=== PATIENT | male | born 1960 | race American Indian/Alaskan Native ===

== ENCOUNTER 2019-01-11 06:11 | Day surgery (SDC) | payer MEDICARE ==
[~2019-01-11 06:11] MED LIST: LACTATED RINGERS 1,000 ML IV SCH; VERSED IV NR
[2019-01-11] MEDS ORDERED: MARCAINE-EPI 0.5%-1:200,000 INFILTRATI ONE ×3 (07:22→08:26)
[2019-01-11] MEDS ORDERED: ZEMURON IV ONE (07:25)
[2019-01-11] MEDS ORDERED: XYLOCAINE MPF 2% ONE (07:25)
[2019-01-11] MEDS ORDERED: SUBLIMAZE ONE (07:26)
[2019-01-11] MEDS ORDERED: VERSED ONE (07:26)
[2019-01-11] MEDS ORDERED: DIPRIVAN 10 MG/ML IV ONE (07:26)
[2019-01-11] MEDS ORDERED: DILAUDID IV PRN (07:28)
--- NOTE | 2019-01-11 07:28 | Anesthesia Consultation ---
Anesthesia Consult and Med Hx Date of service: 01/11/19 - Airway Anesthetic Teeth Evaluation: Edentulous ROM Head & Neck: Adequate Mental/Hyoid Distance: Adequate Mallampati Class: Class II Intubation Access Assessment: Probably Good - Pulmonary Exam CTA: Yes - Cardiac Exam Cardiac Exam: RRR - Pre-Operative Health Status ASA Pre-Surgery Classification: ASA2 Proposed Anesthetic Plan: General - Pulmonary Hx Smoking: Yes (1/2 PPD) Hx Respiratory Symptoms: No - Cardiovascular System Hx Hypertension: No Hx Heart Attack/AMI: No - Central Nervous System CVA: No Hx Psychiatric Problems: Yes (schizophrenia on haldol q2wks) - Gastrointestinal Hx Gastroesophageal Reflux Disease: No - Endocrine Hx Renal Disease: No Hx Liver Disease: No Hx Insulin Dependent Diabetes: No Hx Non-Insulin Dependent Diabetes: No Hx Thyroid Disease: No - Hematic Hx Anemia: No - Other Systems Hx Obesity: No
--- NOTE | 2019-01-11 07:29 | Anesthesia Day of Surgery ---
Anesthesia Day of Surgery - Day of Surgery Patient Examined: Yes Patient H&P Reviewed: Yes Patient is NPO: Yes
[2019-01-11] MEDS ORDERED: ceFAZolin 2 GM in NACL 0.9% 100 ML IV ONE (07:30)
[2019-01-11] MEDS ORDERED: TORADOL ONE (08:09)
[2019-01-11] MEDS ORDERED: ZOFRAN ONE (08:09)
[2019-01-11] MEDS ORDERED: ROBINUL ONE (08:29)
[2019-01-11] MEDS ORDERED: BLOXIVERZ ONE (08:29)
--- NOTE | 2019-01-11 08:35 | Discharge Summary ---
Short Stay Discharge Plan Activity: other (observe x 4 hrs then july d/c if stable and able to void. ice pack L groin x 6 hrs. scrotal support x 3 days. no lifting over 5 lbs x 3 wks) Diet: other (cl liq diet. advance to solid high fiber diet as prema) Wound: keep clean and dry (x 5 days) Additional Instructions: aleve I po q 6-8 hrs prn for breakthrough pain. surfak I po q am x 3 Follow up with: BRISSA JOVEL MD [Staff Physician] - 7 Days
[2019-01-11] MEDS ORDERED: ANCEF/STERILE WATER 2 GM/20 ML 2 GM/20 ML SYRINGE IV NR (09:00)
--- NOTE | 2019-01-11 09:28 | Operative Report ---
PREOPERATIVE DIAGNOSIS: Left inguinal hernia. POSTOPERATIVE DIAGNOSIS: Left inguinal hernia. PROCEDURE: Open left inguinal hernia repair with mesh. SURGEON: Lloyd Ellison MD ANESTHESIA: General. ESTIMATED BLOOD LOSS: Minimal. DRAINS: None. COMPLICATIONS: None. FINDINGS: Direct left inguinal hernia. PROCEDURE IN DETAIL: The patient was taken to the operating room, prepped and draped in the usual sterile fashion. An incision was made using his landmarks, the anterior superior iliac spine and the pubic tubercle. Incision was carried down to the external oblique fascia. External oblique fascia was transected down to the external inguinal ring. The cord was then isolated with a Castaner drain at the level of the pubic tubercle. The cord was inspected and no indirect sac noted. Palpation of the inguinal canal floor revealed a direct inguinal hernia. A preshaped keyhole Marlex mesh was then used to reinforce the inguinal canal floor. The mesh was tacked to the pubic tubercle with a tacker. Medially, the mesh was secured to the transversalis fascia with #1 Nurolon and laterally, secured to the iliopubic tract. Area was then irrigated copiously and dried. Checked for hemostasis and noted to be dry. All cord structures were then once again inspected and noted to be intact including the ilioinguinal nerve. The cord was onlaid over the mesh. External oblique fascia was closed over the cord with running 3-0 Vicryl suture. Subcutaneous tissues irrigated and skin closed with beverly. A 0.5% Marcaine was infiltrated over the fascia, subcutaneous, and skin for postoperative pain relief. Ilioinguinal nerve block was also performed. The patient tolerated the procedure well and left the OR in stable condition. JOB# [id number] FP/NTS
[2019-01-11] MEDS ORDERED: NORCO 5/325 PO PRN (10:00)
--- NOTE | 2019-01-11 10:09 | Post Anesthesia Evaluation ---
- Post Anesthesia Evaluation Patient Participated: Yes Airway Patent: Yes Stable Respiratory Function: Yes Nausea/Vomiting: No Temp > 96.8F: Yes Pain Manageable: Yes Adequeate Hydration: Yes Anesthesia Complications: No Block Receding Appropriately: Not Applicable
[2019-01-11 12:18] VITALS: BP 120/78
== END 2019-01-11 06:12 | disposition home or self-care (01) ==
LOC: OR 06:11
PROVIDERS: ATTEND Surgery
DX: K40.90 Unilateral inguinal hernia, without obstruction or gangrene, not specified as recurrent (principal); F17.210 Nicotine dependence, cigarettes, uncomplicated; Z79.899 Other long term (current) drug therapy
CPT/HCPCS: 49505; C1781; J1170; J1885; J2250; J2405; J2704; J2710; J3010; J7120